=== PATIENT | female | born 1965 | race Two or more races ===

== ENCOUNTER 2016-10-29 11:15 | Inpatient (IN) | payer OTHER ==
[2016-10-29 12:29] VITALS: BMI 20.2
--- NOTE | 2016-10-29 15:09 | HP ---
COWS - Scale Resting Pulse: 1= [place] 81-100 Sweatin=Flushed/Facial Moisture Restless Observation: 1= Difficult to Sit Still Pupil Size: 0= Normal to Room Light Bone or Joint Aches: 2= Severe Diffuse Aches Runny Nose/ Eye Tearin= Runny Nose/Eyes GI Upset > 30mins: 2= Nausea/Diarrhea Tremor Observation: 2= Slight Tremor Visible Yawning Observation: 2= >3x During Session Anxiety or Irritability: 2=Irritable/Anxious Goose Flesh Skin: 3=Piloerection COWS Score: 19 Admission ROS S - HPI Chief Complaint: I want to get clean. Allergies/Adverse Reactions: Allergies Allergy/AdvReac Type Severity Reaction Status Date / Time No Known Allergies Allergy Verified 10/29/16 13:41 History of Present Illness: pt is a 50yr old female with a history of heroin and crack/cocaine dependence seeking detox for treatment. Exam Limitations: No Limitations - Ebola screening Have you traveled outside of the country in the last 21 days: No Have you had contact with anyone from an Ebola affected area: No Have you been sick,other than usual withdrawal symptoms: No - Review of Systems Constitutional: Chills, Diaphoresis, Loss of Appetite, Night Sweats, Changes in sleep, Unintentional Wgt. Loss EENT: reports: Tearing, Nose Congestion Respiratory: reports: No Symptoms reported Cardiac: reports: No Symptoms Reported GI: reports: Poor Appetite, Poor Fluid Intake : reports: No Symptoms Reported Musculoskeletal: reports: Back Pain Integumentary: reports: Flushing, Sweating Neuro: reports: Tingling, Tremors Endocrine: reports: Excessive Sweating, Flushing, Intolerance to Cold, Intolerance to Heat Hematology: reports: No Symptoms Reported Psychiatric: reports: Judgement Intact, Mood/Affect Appropiate, Orientated x3, Agitated, Anxious Other Systems: Reviewed and Negative Patient History - Patient Medical History Hx Anemia: No Hx Asthma: Yes Hx Chronic Obstructive Pulmonary Disease (COPD): No Hx Cancer: No Hx Cardiac Disorders: No Hx Congestive Heart Failure: No Hx Hypertension: No Hx Hypercholesterolemia: No Hx Pacemaker: No HX Cerebrovascular Accident: No Hx Seizures: No Hx Dementia: No Hx Diabetes: No Hx Gastrointestinal Disorders: No Hx Liver Disease: No Hx Genitourinary Disorders: No Hx Sexually Transmitted Disorders: No Hx Renal Disease (ESRD): No Hx Thyroid Disease: No Hx Human Immunodeficiency Virus (HIV): No Hx Hepatitis C: No Hx Depression: Yes Hx Suicide Attempt: No Hx Bipolar Disorder: No Hx Schizophrenia: No - Patient Surgical History Past Surgical History: Yes Hx Neurologic Surgery: No Hx Cataract Extraction: No Hx Cardiac Surgery: No Hx Lung Surgery: No Hx Breast Surgery: No Hx Breast Biopsy: No Hx Abdominal Surgery: Yes (spleenectomy/hernia repair) Hx Appendectomy: No Hx Cholecystectomy: No Hx Genitourinary Surgery: No Hx Section: No Hx Orthopedic Surgery: No Anesthesia Reaction: No - PPD History Previous Implant?: Yes Documented Results: Positive w/o proof PPD to be Administered?: No - Reproductive History Patient is a Female of Child Bearing Age (11 -55 yrs old): No Patient : No - Smoking Cessation Smoking history: Current every day smoker Have you smoked in the past 12 months: Yes Aproximately how many cigarettes per day: 7 Hx Chewing Tobacco Use: No Initiated information on smoking cessation: Yes 'Breaking Loose' booklet given: 10/29/16 - Substance & Tx. History Hx Alcohol Use: No Hx Substance Use: Yes Substance Use Type: Cocaine, Heroin Hx Substance Use Treatment: Yes - Substances Abused Heroin Route: Inhalation Frequency: Daily Amount used: 6 bags Age of first use: 24 Date of Last Use: 10/28/16 Crack Route: Smoking Frequency: 1-2 times per week Amount used: $20 Age of first use: 34 Date of Last Use: 10/27/16 Family Disease History - Family Disease History Family History: Denies Admission Physical Exam S - Vital Signs Vital Signs: Vital Signs - 24 hr 10/29/16 12:27 Temperature 96.9 F L Pulse Rate 83 Respiratory 18 Rate Blood Pressure 117/72 - Physical General Appearance: Yes: Appropriately Dressed, Moderate Distress, Thin, Tremorous, Irritable, Sweating, Anxious HEENTM: Yes: Hearing grossly Normal, Normal Voice, Nasal Congestion, Rhinorrhea Respiratory: Yes: No Respiratory Distress, Wheezing Neck: Yes: Within Normal Limits Breast: Yes: Within Normal Limits, No Discharge, No masses Cardiology: Yes: Regular Rate, S1, S2, Tachycardia Abdominal: Yes: Non Tender, Soft Genitourinary: Yes: Within Normal Limits Back: Yes: Normal Inspection Musculoskeletal: Yes: full range of Motion Extremities: Yes: Tremors Neurological: Yes: Fully Oriented, Alert, Normal Response Integumentary: Yes: Normal Color, Diaphoresis Lymphatic: Yes: Within Normal Limits - Diagnostic (1) Opioid dependence with withdrawal Current Visit: Yes Status: Chronic (2) Asthma Current Visit: Yes Status: Chronic Qualifiers: Asthma severity: mild intermittent Asthma complication type: uncomplicated Qualified Code(s): J45.20 - Mild intermittent asthma, uncomplicated (3) Cocaine dependence, uncomplicated Current Visit: Yes Status: Chronic (4) Nicotine dependence Current Visit: Yes Status: Chronic Qualifiers: Nicotine product type: cigarettes Substance use status: uncomplicated Qualified Code(s): F17.210 - Nicotine dependence, cigarettes, uncomplicated Cleared for Admission [facility] - Detox or Rehab [facility] Level of Care: Medically Managed Detox Regimen/Protocol: Methadone [facility] Breath Alcohol Content Breath Alcohol Content: 0 Urine Pregancy Test - Result Urine Test Results: Negative- NO Line Present Urine Drug Screen - Results Drug Screen Negative: No Urine Drug Screen Results: SUNNY-Cocaine, OPI-Opiates
[2016-10-29] MEDS ORDERED: P-EPHED 60MG/TRIPROLIDI 2.5MG TABLET PO PRN (15:17)
[2016-10-29] MEDS ORDERED: MENTHOL/PHENOL 1 EACH UD MM PRN (15:17)
[2016-10-29] MEDS ORDERED: MAGNESIUM HYDROX 2400MG/30ML ORAL SUSPENSION 30 ML CUP PO PRN (15:17)
[2016-10-29] MEDS ORDERED: LOPERAMIDE HCL 2 MG CAPSULE PO PRN (15:17)
[2016-10-29] MEDS ORDERED: MAGNESIUM CITRATE 300 ML BOTTLE PO PRN (15:17)
[2016-10-29] MEDS ORDERED: guaiFENesin/D-METHORPHAN HB 10 ML UNIT-DOSE CUPS PO PRN (15:17)
[2016-10-29] MEDS ORDERED: ALBUTEROL SO4 2.5/IPRATROPIUM 0.5 INH SOL 3 ML VIAL.NEB. NEB ONE (16:30)
[2016-10-29] MEDS ORDERED: METHADONE HCL 10 MG TABLET (FOR DETOX USE ONLY) PO ONE ×2 (16:30→23:00)
[2016-10-29] MEDS: MAG HYDROX/AL HYDROX/SIMETH 30 ML UNIT-DOSE CUP PO PRN (16:36)
[2016-10-29] MEDS: diazePAM 5 MG TABLET PO PRN ×2 (16:53→22:08)
[2016-10-29] MEDS: ALBUTEROL SO4 6.7 GM HFA INHALER IH PRN (18:00)
[2016-10-29 20:06] LABS: URINE APPEARANCE CLEAR; URINE BILIRUBIN NEGATIVE (NEGATIVE); URINE COLOR YELLOW; URINE GLUCOSE (UA) NEGATIVE (NEGATIVE); URINE KETONE TRACE (NEGATIVE); URINE NITRITE NEGATIVE (NEGATIVE); URINE UROBILINOGEN NEGATIVE E.U./dl (0.2-1.0)
[2016-10-29 20:12] LABS: URINE BLOOD 1+ (NEGATIVE); URINE LEUK ESTERASE TRACE (NEGATIVE); URINE PROTEIN 1+ (NEGATIVE)
[2016-10-29 20:19] LABS: URINE MUCUS MODERATE; URINE RBC 14 /hpf (0-3); URINE WBC 3 /hpf (3-5)
[2016-10-29] MEDS ORDERED: ONDANSETRON *ODT* 4 MG TABLET SL ONE (20:26)
--- NOTE | 2016-10-29 20:27 | PN ---
[facility] Progress Note Note: received nurse informed patient feels nausea, zofran 4 mg x 1 continue detox
[2016-10-29] MEDS: NICOTINE POLACRILEX 4 MG GUM BC PRN (22:11)
[2016-10-29] MEDS: THIAMINE HCL 100 MG TABLET (FP) PO SCH (22:55)
[2016-10-30] MEDS: ALBUTEROL SO4 2.5/IPRATROPIUM 0.5 INH SOL 3 ML VIAL.NEB. NEB PRN ×2 (03:00→18:50)
[2016-10-30] MEDS: ALBUTEROL SO4 6.7 GM HFA INHALER IH PRN (06:11)
[2016-10-30] MEDS: diazePAM 5 MG TABLET PO PRN ×4 (06:42→22:47)
[2016-10-30] MEDS: NICOTINE POLACRILEX 4 MG GUM BC PRN ×3 (06:45→22:49)
--- NOTE | 2016-10-30 07:40 | PN ---
[facility] Progress Note Note: PT SEEN FOR C/O SOB. PT REPORTS FEELING BETTER AFTER DUONEB X2. PRESENTLY DENIES SOB, C.P. SEEN LYING IN BED SLEEPING, AROUSABLE A/OX3 NAD, INTERMITTENT NON PRODUCTIVE COUGH LUNGS- B/L WHEEZING 02 SAT 97% RA A- ACUTE ASTHMA P- CONT DUONEB PREDNISONE 40 MG PO X 5 DAYS CONT DETOX
[2016-10-30] MEDS ORDERED: METHADONE HCL 10 MG TABLET (FOR DETOX USE ONLY) PO ONE (10:00)
[2016-10-30 10:15] LABS: MCH 30.5 pg (25.7-33.7); MCHC 32.3 g/dl (32.0-36.0); MEAN CELL VOLUME 94.4 fl (80-96); MEAN PLT VOLUME 7.9 fl (7.5-11.1); PLATELET COUNT 306 K/MM3 (134-434); RDW 13.5 % (11.6-15.6); WHITE BLOOD COUNT 5.3 K/mm3 (4.0-10.0)
[2016-10-30] MEDS: PRENATAL VITAMINS W/ FOLIC ACID TABLET (FP) PO SCH (10:45)
[2016-10-30] MEDS: predniSONE 20 MG TABLET (UD) PO SCH (10:45)
[2016-10-30 12:34] LABS: ALBUMIN 3.4 g/dl (3.4-5.0); ANION GAP 10 (8-16); BILIRUBIN,TOTAL 0.2 mg/dL (0.2-1.0); CALCIUM 8.6 mg/dL (8.5-10.1); CO2 30 mmol/L (21-32); COCKROFT - GAULT 90.5505; CREATININE 0.7 mg/dL (0.55-1.02); GLUCOSE,RANDOM 83 mg/dL (74-106); SGOT/AST 12 U/L (15-37); SGPT/ALT 22 U/L (12-78); TOT PROT 6.5 g/dl (6.4-8.2)
[2016-10-30 12:35] LABS: ALK PHOS 71 U/L (45-117)
[2016-10-30 13:59] LABS: HIV 1 & 2 AB NEGATIVE; HIV 1 AGp24 NEGATIVE
--- NOTE | 2016-10-30 14:37 | PN ---
[facility] COWS - Scale Resting Pulse: 1= [place] 81-100 Sweatin= Chills/Flushing Restless Observation: 1= Difficult to Sit Still Pupil Size: 0= Normal to Room Light Bone or Joint Aches: 2= Severe Diffuse Aches Runny Nose/ Eye Tearin= Runny Nose/Eyes GI Upset > 30mins: 3= Vomiting/Diarrhea Tremor Observation of Outstretched Hands: 2= Slight Tremor Visible Yawning Observation: 0= None Anxiety or Irritability: 2=Irritable/Anxious Goose Flesh Skin: 3=Piloerection COWS Score: 17 [facility] Progress Note (SOAP) Subjective: Tremors, Vomiting, H/A, Sweating, Body aches, intermittent SOB (history of Asthma). Objective: PT. A & O X 3, OBSERVED AMBULATING ON UNIT. O2 SAT: 98 % ON ROOM AIR. 10/30/16 14:34 Vital Signs Temperature 96.9 F L 10/30/16 14:13 Pulse Rate 90 10/30/16 14:13 Respiratory Rate 16 10/30/16 14:13 Blood Pressure 154/97 10/30/16 14:13 O2 Sat by Pulse Oximetry (%) Laboratory Last Values WBC 5.3 K/mm3 (4.0-10.0) 10/30/16 06:00 RBC 4.26 M/mm3 (3.60-5.2) 10/30/16 06:00 Hgb 13.0 GM/dL (10.7-15.3) 10/30/16 06:00 Hct 40.2 % (32.4-45.2) 10/30/16 06:00 MCV 94.4 fl (80-96) 10/30/16 06:00 MCHC 32.3 g/dl (32.0-36.0) 10/30/16 06:00 RDW 13.5 % (11.6-15.6) 10/30/16 06:00 Plt Count 306 K/MM3 (134-434) 10/30/16 06:00 MPV 7.9 fl (7.5-11.1) 10/30/16 06:00 Sodium 145 mmol/L (136-145) 10/30/16 06:00 Potassium 4.1 mmol/L (3.5-5.1) 10/30/16 06:00 Chloride 105 mmol/L (98-107) 10/30/16 06:00 Carbon Dioxide 30 mmol/L (21-32) 10/30/16 06:00 Anion Gap 10 (8-16) 10/30/16 06:00 BUN 10 mg/dL (7-18) 10/30/16 06:00 Creatinine 0.7 mg/dL (0.55-1.02) 10/30/16 06:00 Creat Clearance w eGFR > 60 (>60) 10/30/16 06:00 POC Glucometer 122 UNITS (()) 10/30/16 06:28 Random Glucose 83 mg/dL (74-106) 10/30/16 06:00 Calcium 8.6 mg/dL (8.5-10.1) 10/30/16 06:00 Total Bilirubin 0.2 mg/dL (0.2-1.0) 10/30/16 06:00 AST 12 U/L (15-37) L 10/30/16 06:00 ALT 22 U/L (12-78) 10/30/16 06:00 Alkaline Phosphatase 71 U/L (45-117) 10/30/16 06:00 Total Protein 6.5 g/dl (6.4-8.2) 10/30/16 06:00 Albumin 3.4 g/dl (3.4-5.0) 10/30/16 06:00 Urine Color Yellow 10/29/16 15:30 Urine Appearance Clear 10/29/16 15:30 Urine pH 5.0 (5.0-8.0) 10/29/16 15:30 Ur Specific [place] 1.032 (1.001-1.035) 10/29/16 15:30 Urine Protein 1+ (NEGATIVE) H 10/29/16 15:30 Urine Glucose (UA) Negative (NEGATIVE) 10/29/16 15:30 Urine Ketones Trace (NEGATIVE) H 10/29/16 15:30 Urine Blood 1+ (NEGATIVE) H 10/29/16 15:30 Urine Nitrite Negative (NEGATIVE) 10/29/16 15:30 Urine Bilirubin Negative (NEGATIVE) 10/29/16 15:30 Urine Urobilinogen Negative E.U./dl (0.2-1.0) 10/29/16 15:30 Ur Leukocyte Esterase Trace (NEGATIVE) H 10/29/16 15:30 Urine RBC 14 /hpf (0-3) 10/29/16 15:30 Urine WBC 3 /hpf (3-5) 10/29/16 15:30 Ur Epithelial Cells Rare /hpf (FEW) 10/29/16 15:30 Urine Mucus Moderate 10/29/16 15:30 HIV 1&2 Antibody Screen Negative 10/30/16 10:05 HIV P24 Antigen Negative 10/30/16 10:05 LABS NOTED. Assessment: 10/30/16 14:35 WITHDRAWAL SYMPTOMS. Plan: CONTINUE DETOX. PRN NEBULIZER TREATMENTS FOR SOB. ADVISED PATIENT TO FOLLOW-UP WITH [facility] / REHAB MEDICAL PROVIDER AFTER DISCHARGE FROM DETOX FOR GENERAL MEDICAL ASSESSMENT AND FOR ABNORMAL ADMISSION LAB VALUES.
--- NOTE | 2016-10-30 16:16 | EKG ---
Test Reason : Blood Pressure : / mmHG Vent. Rate : 075 BPM Atrial Rate : 075 BPM P-R Int : 108 ms QRS Dur : 088 ms QT Int : 376 ms P-R-T Axes : -04 000 004 degrees QTc Int : 419 ms SINUS RHYTHM WITH SHORT CA MODERATE VOLTAGE CRITERIA FOR LVH, MAY BE NORMAL VARIANT T WAVE ABNORMALITY, CONSIDER ANTERIOR ISCHEMIA ABNORMAL ECG NO PREVIOUS ECGS AVAILABLE Confirmed by TRAM BAZZI MD ([id number]) on 10/30/2016 4:16:25 PM Referred By: Confirmed By:TRAM BAZZI MD
--- NOTE | 2016-10-30 17:25 | CONSULT ---
[facility] Psychiatric Consult - Data Date of interview: 10/30/16 Admission source: [facility] Identifying data: Readmission to [facility] for this 50 y/o female seeeking detox treatment for heroin dependence.Patient is single,a mother of three,domiciled (lives with her homosexual partner),unemployed and supported on food stamps. Substance Abuse History: - Smoking Cessation. Smoking history: Current every day smoker. Have you smoked in the past 12 months: Yes. Aproximately how many cigarettes per day: 7. Hx Chewing Tobacco Use: No. Initiated information on smoking cessation: Yes. 'Breaking Loose' booklet given: 10/29/16. - Substance & Tx. History. Hx Alcohol Use: No. Hx Substance Use: Yes. Substance Use Type : Cocaine, Heroin. Hx Substance Use Treatment: Yes. - Substances Abused. Heroin. Route: Inhalation. Frequency: Daily. Amount used: 6 bags. Age of first use: 24. Date of Last Use: 10/28/16. Crack. Route: Smoking. Frequency: 1-2 times per week. Amount used: $20. Age of first use: 34. Date of Last Use: 10/27/16. Confirmed by patient. Medical History: Bronchial asthma,past history of splenectomy/abdominal herniorraphy. Psychiatric History: Patient is a hostile and markedly irritable historian.Reluctant to provide longitudinal information.Diagnosed with MDD/ Anxiety Disorder.Admits to a remote history of psychiatric hospitalizations." Don't ask me when or where.I don't remember.It's so far long ago." No recent history of OPD care.Ms Alfonso denies being on psychotropic medications.She endorses months of non-adherence.She reports chronic insomnia and she informs that " your ambien,seroquel or trazodone do not do anything for me ".Patient denies history of suicide attempts. Physical/Sexual Abuse/Trauma History: No history. Additional Comment: Urine Drug Screen Results: SUNNY-Cocaine, OPI-Opiates.Noted. Mental Status Exam - Mental Status Exam Alert and Oriented to: Time, Place, Person Cognitive Function: Good Patient Appearance: Well Groomed Mood: Hostile, Withdrawn, Irritable Affect: Mood Congruent Patient Behavior: Fatigued, Uncooperative, Guarded Speech Pattern: Clear Voice Loudness: Normal Thought Process: Goal Oriented Thought Disorder: Not Present Hallucinations: Denies Suicidal Ideation: Denies Homicidal Ideation: Denies Insight/Judgement: Poor Sleep: Poorly, Difficulty falling asleep Appetite: Good Muscle strength/Tone: Normal Gait/Station: Normal Psychiatric Findings - Problem List ([place] 1, 2,3) (1) Cocaine dependence, uncomplicated Current Visit: Yes Status: Acute (2) Opioid dependence with withdrawal Current Visit: Yes Status: Acute (3) Nicotine dependence Current Visit: Yes Status: Acute Qualifiers: Nicotine product type: cigarettes Substance use status: uncomplicated Qualified Code(s): F17.210 - Nicotine dependence, cigarettes, uncomplicated (4) Substance induced mood disorder Current Visit: Yes Status: Acute (5) Asthma Current Visit: Yes Status: Chronic Qualifiers: Asthma severity: mild intermittent Asthma complication type: uncomplicated Qualified Code(s): J45.20 - Mild intermittent asthma, uncomplicated (6) Insomnia Current Visit: Yes Status: Acute - Initial Treatment Plan Initial Treatment Plan: Psychoeducation.Detoxification.Insomnia is addressed with benadryl 50 mg po hs prn.Discussed with the patient.Agrees with this careplan.Observation.
[2016-10-30] MEDS: THIAMINE HCL 100 MG TABLET (FP) PO SCH (22:45)
[2016-10-31] MEDS ORDERED: METHADONE HCL 5 MG TABLET (FOR DETOX USE ONLY) PO ONE (10:00)
[2016-10-31] MEDS: predniSONE 20 MG TABLET (UD) PO SCH (10:39)
[2016-10-31] MEDS: PRENATAL VITAMINS W/ FOLIC ACID TABLET (FP) PO SCH (10:39)
[2016-10-31] MEDS: NICOTINE POLACRILEX 4 MG GUM BC PRN ×3 (10:40→22:30)
[2016-10-31] MEDS: diazePAM 5 MG TABLET PO PRN ×3 (10:41→22:29)
[2016-10-31] MEDS: IBUPROFEN 400 MG TABLET (FP) PO PRN ×2 (12:08→17:47)
--- NOTE | 2016-10-31 14:17 | PN ---
S COWS - Scale Resting Pulse: 1= [place] 81-100 Sweatin= Chills/Flushing Restless Observation: 3= Extraneous Movement Pupil Size: 0= Normal to Room Light Bone or Joint Aches: 2= Severe Diffuse Aches Runny Nose/ Eye Tearin= Runny Nose/Eyes GI Upset > 30mins: 1= Stomach Cramp Tremor Observation of Outstretched Hands: 0= None Yawning Observation: 1= 1-2x During Session Anxiety or Irritability: 2=Irritable/Anxious Goose Flesh Skin: 0=Smooth Skin COWS Score: 13 S Progress Note (SOAP) Subjective: Anxious, restless, nausea, interrupted sleep Objective: 10/31/16 14:16 Last Vital Signs Temp Pulse Resp BP Pulse Ox 97.7 F 96 H 18 120/60 10/31/16 13:50 10/31/16 13:50 10/31/16 13:50 10/31/16 13:50 Laboratory Tests 10/29/16 10/30/16 10/30/16 15:30 06:00 06:00 WBC 5.3 RBC 4.26 Hgb 13.0 Hct 40.2 MCV 94.4 MCHC 32.3 RDW 13.5 Plt Count 306 MPV 7.9 Sodium 145 Potassium 4.1 Chloride 105 Carbon Dioxide 30 Anion Gap 10 BUN 10 Creatinine 0.7 Creat Clearance w eGFR > 60 POC Glucometer Random Glucose 83 Calcium 8.6 Total Bilirubin 0.2 AST 12 L ALT 22 Alkaline Phosphatase 71 Total Protein 6.5 Albumin 3.4 Urine Color Yellow Urine Appearance Clear Urine pH 5.0 Ur Specific [place] 1.032 Urine Protein 1+ H Urine Glucose (UA) Negative Urine Ketones Trace H Urine Blood 1+ H Urine Nitrite Negative Urine Bilirubin Negative Urine Urobilinogen Negative Ur Leukocyte Esterase Trace H Urine RBC 14 Urine WBC 3 Ur Epithelial Cells Rare Urine Mucus Moderate RPR Titer HIV 1&2 Antibody Screen HIV P24 Antigen 10/30/16 10/30/16 10/30/16 06:00 06:28 10:05 WBC RBC Hgb Hct MCV MCHC RDW Plt Count MPV Sodium Potassium Chloride Carbon Dioxide Anion Gap BUN Creatinine Creat Clearance w eGFR POC Glucometer 122 Random Glucose Calcium Total Bilirubin AST ALT Alkaline Phosphatase Total Protein Albumin Urine Color Urine Appearance Urine pH Ur Specific [place] Urine Protein Urine Glucose (UA) Urine Ketones Urine Blood Urine Nitrite Urine Bilirubin Urine Urobilinogen Ur Leukocyte Esterase Urine RBC Urine WBC Ur Epithelial Cells Urine Mucus RPR Titer Nonreactive HIV 1&2 Antibody Screen Negative HIV P24 Antigen Negative Labs noted: UA shows 1+ protein, 1+ blood, RBC 14 Assessment: 10/31/16 14:17 Withdrawal symptoms Noted with proteinuria and microscopic hematuria Plan: Continue detox Proteinuria and microscopic hematuria: encouraged to drink lots of water, repeat UA
[2016-10-31] MEDS: diphenhydrAMINE HCL 50 MG CAPSULE PO PRN (22:29)
[2016-10-31] MEDS: THIAMINE HCL 100 MG TABLET (FP) PO SCH (22:29)
[2016-11-01] MEDS: hydrOXYzine PAMOATE 50 MG CAPSULE (FP) PO PRN (06:58)
[2016-11-01] MEDS: IBUPROFEN 400 MG TABLET (FP) PO PRN (07:00)
[2016-11-01] MEDS: MAG HYDROX/AL HYDROX/SIMETH 30 ML UNIT-DOSE CUP PO PRN (07:01)
[2016-11-01] MEDS: NICOTINE POLACRILEX 4 MG GUM BC PRN ×3 (09:19→22:24)
[2016-11-01] MEDS ORDERED: METHADONE HCL 5 MG TABLET (FOR DETOX USE ONLY) PO ONE (10:00)
--- NOTE | 2016-11-01 10:27 | PN ---
S Progress Note (SOAP) Subjective: ALERT,IRRITABLE,ANXIOUS,INTERRUPTED SLEEP,PAIN IN THE BODY AND BACK Objective: 11/01/16 10:26 Vital Signs Temperature 97.7 F 11/01/16 09:42 Pulse Rate 92 H 11/01/16 09:42 Respiratory Rate 20 11/01/16 09:42 Blood Pressure 129/79 11/01/16 09:42 O2 Sat by Pulse Oximetry (%) Assessment: 11/01/16 10:26 WITHDRAWAL SYMPTOM Plan: CONTINUE DETOX,REPEAT UA,ENCOURAGE ORAL FLUID
[2016-11-01] MEDS: PRENATAL VITAMINS W/ FOLIC ACID TABLET (FP) PO SCH (10:38)
[2016-11-01] MEDS: predniSONE 20 MG TABLET (UD) PO SCH (10:38)
[2016-11-01] MEDS: ACETAMINOPHEN 325 MG TABLET (FP) PO PRN (10:40)
[2016-11-01] MEDS: diazePAM 5 MG TABLET PO PRN (11:33)
[2016-11-01] MEDS: THIAMINE HCL 100 MG TABLET (FP) PO SCH (22:22)
[2016-11-01] MEDS: cloNIDine HCL 0.1 MG TABLET PO SCH (22:22)
[2016-11-01] MEDS: diphenhydrAMINE HCL 50 MG CAPSULE PO PRN (22:23)
[2016-11-02] MEDS: NICOTINE POLACRILEX 4 MG GUM BC PRN ×5 (07:39→22:41)
--- NOTE | 2016-11-02 09:21 | PN ---
S Progress Note (SOAP) Subjective: ALERT,IRRITABLE,ANXIOUS,INTERRUPTED SLEEP Objective: 11/02/16 09:20 Vital Signs Temperature 97.7 F 11/02/16 06:00 Pulse Rate 65 11/02/16 06:00 Respiratory Rate 18 11/02/16 06:00 Blood Pressure 146/83 11/02/16 06:00 O2 Sat by Pulse Oximetry (%) Assessment: 11/02/16 09:20 WITHDRAWAL SYMPTOM Plan: CONTINUE DETOX,DISCHARGE IN AM
[2016-11-02] MEDS ORDERED: METHADONE HCL 10 MG TABLET (FOR DETOX USE ONLY) PO ONE (10:00)
[2016-11-02] MEDS: PRENATAL VITAMINS W/ FOLIC ACID TABLET (FP) PO SCH (10:21)
[2016-11-02] MEDS: ACETAMINOPHEN 325 MG TABLET (FP) PO PRN (10:21)
[2016-11-02] MEDS: predniSONE 20 MG TABLET (UD) PO SCH (10:21)
[2016-11-02] MEDS: cloNIDine HCL 0.1 MG TABLET PO SCH ×2 (10:21→22:40)
[2016-11-02] MEDS: CYCLOBENZAPRINE HCL 10 MG TABLET (FP) PO PRN ×2 (16:43→22:42)
[2016-11-02] MEDS: hydrOXYzine PAMOATE 50 MG CAPSULE (FP) PO PRN (16:43)
[2016-11-02 17:45] LABS: URINE APPEARANCE SLCLOUDY; URINE BILIRUBIN NEGATIVE (NEGATIVE); URINE BLOOD NEGATIVE (NEGATIVE); URINE GLUCOSE (UA) NEGATIVE (NEGATIVE); URINE KETONE TRACE (NEGATIVE); URINE NITRITE NEGATIVE (NEGATIVE); URINE PROTEIN NEGATIVE (NEGATIVE); URINE UROBILINOGEN NEGATIVE E.U./dl (0.2-1.0)
[2016-11-02 17:46] LABS: URINE COLOR YELLOW; URINE LEUK ESTERASE 2+ (NEGATIVE)
[2016-11-02 17:49] LABS: CALCIUM OXALATE CRYSTALS RARE /hpf (NONE SEEN); URINE MUCUS RARE; URINE RBC 5 /hpf (0-3); URINE WBC 27 /hpf (3-5)
[2016-11-02] MEDS: THIAMINE HCL 100 MG TABLET (FP) PO SCH (22:40)
[2016-11-02] MEDS: diphenhydrAMINE HCL 50 MG CAPSULE PO PRN (22:40)
[2016-11-03] MEDS ORDERED: METHADONE HCL 5 MG TABLET (FOR DETOX USE ONLY) PO ONE (06:00)
[2016-11-03] MEDS: NICOTINE POLACRILEX 4 MG GUM BC PRN (07:52)
[2016-11-03] MEDS: ACETAMINOPHEN 325 MG TABLET (FP) PO PRN (07:53)
--- NOTE | 2016-11-03 08:14 | PN ---
S Progress Note (SOAP) Subjective: ALERT,NO COMPLAINT Objective: 11/03/16 07:50 Vital Signs Temperature 97.9 F 11/03/16 06:26 Pulse Rate 61 11/03/16 06:26 Respiratory Rate 16 11/03/16 06:26 Blood Pressure 129/79 11/03/16 06:26 O2 Sat by Pulse Oximetry (%) 11/03/16 08:27 Laboratory Last Values WBC 5.3 K/mm3 (4.0-10.0) 10/30/16 06:00 RBC 4.26 M/mm3 (3.60-5.2) 10/30/16 06:00 Hgb 13.0 GM/dL (10.7-15.3) 10/30/16 06:00 Hct 40.2 % (32.4-45.2) 10/30/16 06:00 MCV 94.4 fl (80-96) 10/30/16 06:00 MCHC 32.3 g/dl (32.0-36.0) 10/30/16 06:00 RDW 13.5 % (11.6-15.6) 10/30/16 06:00 Plt Count 306 K/MM3 (134-434) 10/30/16 06:00 MPV 7.9 fl (7.5-11.1) 10/30/16 06:00 Sodium 145 mmol/L (136-145) 10/30/16 06:00 Potassium 4.1 mmol/L (3.5-5.1) 10/30/16 06:00 Chloride 105 mmol/L (98-107) 10/30/16 06:00 Carbon Dioxide 30 mmol/L (21-32) 10/30/16 06:00 Anion Gap 10 (8-16) 10/30/16 06:00 BUN 10 mg/dL (7-18) 10/30/16 06:00 Creatinine 0.7 mg/dL (0.55-1.02) 10/30/16 06:00 Creat Clearance w eGFR > 60 (>60) 10/30/16 06:00 POC Glucometer 122 UNITS (()) 10/30/16 06:28 Random Glucose 83 mg/dL (74-106) 10/30/16 06:00 Calcium 8.6 mg/dL (8.5-10.1) 10/30/16 06:00 Total Bilirubin 0.2 mg/dL (0.2-1.0) 10/30/16 06:00 AST 12 U/L (15-37) L 10/30/16 06:00 ALT 22 U/L (12-78) 10/30/16 06:00 Alkaline Phosphatase 71 U/L (45-117) 10/30/16 06:00 Total Protein 6.5 g/dl (6.4-8.2) 10/30/16 06:00 Albumin 3.4 g/dl (3.4-5.0) 10/30/16 06:00 Urine Color Yellow 11/02/16 13:20 Urine Appearance Slcloudy 11/02/16 13:20 Urine pH 5.0 (5.0-8.0) 11/02/16 13:20 Ur Specific [place] 1.027 (1.001-1.035) 11/02/16 13:20 Urine Protein Negative (NEGATIVE) 11/02/16 13:20 Urine Glucose (UA) Negative (NEGATIVE) 11/02/16 13:20 Urine Ketones Trace (NEGATIVE) H 11/02/16 13:20 Urine Blood Negative (NEGATIVE) 11/02/16 13:20 Urine Nitrite Negative (NEGATIVE) 11/02/16 13:20 Urine Bilirubin Negative (NEGATIVE) 11/02/16 13:20 Urine Urobilinogen Negative E.U./dl (0.2-1.0) 11/02/16 13:20 Ur Leukocyte Esterase 2+ (NEGATIVE) H D 11/02/16 13:20 Urine RBC 5 /hpf (0-3) 11/02/16 13:20 Urine WBC 27 /hpf (3-5) 11/02/16 13:20 Ur Epithelial Cells Moderate /hpf (FEW) 11/02/16 13:20 Calcium Oxalate Crystal Rare /hpf (NONE SEEN) 11/02/16 13:20 Urine Mucus Rare 11/02/16 13:20 RPR Titer Nonreactive (NONREACTIVE) 10/30/16 06:00 HIV 1&2 Antibody Screen Negative 10/30/16 10:05 HIV P24 Antigen Negative 10/30/16 10:05 PATIENT IS ASYMPTOMATIC,NO FREQUENCY,NO BURNING ON URINATION Assessment: 11/03/16 08:28 DETOX COMPLETED,NO WITHDRAWAL SYMPTOM Plan: DISCHARGE TODAY,FOLLOW UP WITH AFTER CARE PROGRAM ARRANGEMENT
--- NOTE | 2016-11-03 08:32 | DS ---
[facility] Detox Discharge Summary Admission Date: 10/29/16 Discharge Date: 11/03/16 - History Present History: Cocaine Dependence, Opioid Dependence Additional Comments: FOLLOW UP WITH AFTER CARE PROGRAM ARRANGEMENT Pertinent Past History: ASTHMA NICOTINE DEPENDENCE - Physical Exam Results Vital Signs: Vital Signs Temperature 97.9 F 11/03/16 06:26 Pulse Rate 61 11/03/16 06:26 Respiratory Rate 16 11/03/16 06:26 Blood Pressure 129/79 11/03/16 06:26 O2 Sat by Pulse Oximetry (%) Pertinent Admission Physical Exam Findings: WITHDRAWAL SYMPTOM - Treatment Hospital Course: Detox Protocol Followed, Detoxed Safely, Responded well, Discharged Condition Good, Rehab Referral Accepted Patient has Accepted a Rehab Referral to: [facility] - Medication Discharge Medications: Ambulatory Orders Albuterol Sulfate Inhaler - [Ventolin Hfa Inhaler -] 2 inh PO Q4H PRN 10/29/16 - Diagnosis (1) Cocaine dependence, uncomplicated Current Visit: Yes Status: Acute (2) Nicotine dependence Current Visit: Yes Status: Acute Qualifiers: Nicotine product type: cigarettes Substance use status: uncomplicated Qualified Code(s): F17.210 - Nicotine dependence, cigarettes, uncomplicated (3) Opioid dependence with withdrawal Current Visit: Yes Status: Acute (4) Asthma Current Visit: Yes Status: Chronic Qualifiers: Asthma severity: mild intermittent Asthma complication type: uncomplicated Qualified Code(s): J45.20 - Mild intermittent asthma, uncomplicated - AMA Did Patient Leave Against Medical Advice: No
[2016-11-03 09:53] VITALS: BP 123/75; PULSE 88; TEMP 98.4
[2016-11-04] MEDS ORDERED: predniSONE 10 MG TABLET (UD) PO ONE (10:00)
[2016-11-05] MEDS ORDERED: predniSONE 20 MG TABLET (UD) PO ONE (10:00)
[2016-11-06] MEDS ORDERED: predniSONE 10 MG TABLET (UD) PO ONE (10:00)
[2016-11-07] MEDS ORDERED: predniSONE 5 MG TABLET (UD) PO ONE (10:00)
== END 2016-11-03 09:33 | disposition home or self-care (01) | DRG 773 ==
LOC: YASAS 11:15 → Y6N 14:38
PROVIDERS: ADMIT Internal Medicine Addiction Medicine; ATTEND Internal Medicine Addiction Medicine
PROC: HZ2ZZZZ Detoxification Services for Substance Abuse Treatment (ICD-10-PCS; principal; 2016-11-03)
DX: F11.23 Opioid dependence with withdrawal (principal); F14.20 Cocaine dependence, uncomplicated; F17.210 Nicotine dependence, cigarettes, uncomplicated; F19.24 Other psychoactive substance dependence with psychoactive substance-induced mood disorder; G47.00 Insomnia, unspecified; J45.20 Mild intermittent asthma, uncomplicated
CPT/HCPCS: 36415; 71020-TC; 80053; 81003; 81015; 85027; 86593; 87389; 93005; 93010; 94640